=== PATIENT | male | born 1985 | race African-American/Black ===

== ENCOUNTER 2022-08-10 01:16 | Emergency (ER) | payer MEDICAID, OTHER ==
[~2022-08-10] VITALS: Ht 185.4 cm; Wt 84.0 kg
[2022-08-10 01:19] VITALS: BP 143/93
[2022-08-10] MEDS ORDERED: OxyCODONE HCL/ACETAMINOPHEN 5-325 MG TABLET PO ONE (02:15)
[2022-08-10] MEDS ORDERED: KETOROLAC TROMETHAMINE 30 MG/ML VIAL IM ONE (02:15)
[2022-08-10] MEDS ORDERED: IBUP-2070 PO (02:27)
[2022-08-10] MEDS ORDERED: OXYC-38 PO (02:27)
== END 2022-08-10 02:38 | disposition home or self-care (01) ==
LOC: EMS 01:18
DX: K02.9 Dental caries, unspecified (principal); F12.90 Cannabis use, unspecified, uncomplicated; F17.210 Nicotine dependence, cigarettes, uncomplicated
CPT/HCPCS: 99283; 96372; J1885